=== PATIENT | female | born 1955 | race Caucasian/White ===

== ENCOUNTER 2024-02-19 15:22 | Outpatient (CLI) | payer MEDICARE, BC, SELFPAY ==
--- NOTE | 2024-02-19 15:30 | MR_ITS ---
[address] [address] Phone:?[phone] Fax:?[phone] Referring Physician Information: Felix Meza M.D. [id number] [facility] [address] Phone:?[phone] Fax:?[phone] Patient:Jimmy Alston D.O.B:?1955 Sex:?Female Phone:?[phone] [facility] MRN:?[id number] Exam Date:?02/19/2024 EXAM: MRI of the LEFT KNEE, without contrast CLINICAL INFORMATION: Female, 68 years old, with left knee and calf pain. INDICATION: Evaluate for meniscal tear. PRIOR SURGERY: None reported. PLAIN FILMS: None available. COMPARISONS: No prior MRIs available. TECHNICAL INFORMATION: Using a 1.5T MR scanner and a localizing surface coil: sagittals: PD, T2FS coronals: PD, T2, STIR axials: PD, T2FS SEDATION: None CONTRAST: None FINDINGS: Knee joint: Effusion: Small left knee effusion. Popliteal cyst: None. Loose bodies: None. Subcutaneous and extra-articular soft tissues: Unremarkable. Ligaments: ACL: Intact ACL anteromedial and posterolateral bundles, without sprain or tear. PCL: Intact PCL, without acute or chronic injury. MCL: Moderate periligamentous edema is present along the superficial and deep surfaces of the superficial MCL, without tear (coronal STIR series 9 image 17). LCL: Intact LCL, without injury. Posterolateral corner: No posterolateral corner soft tissue injury. Popliteus, biceps femoris, iliotibial band, popliteofibular ligament and lateral gastrocnemius are intact. Posteromedial corner: No posteromedial corner soft tissue injury. Semimembranosus, pes anserine tendons and posterior oblique ligament are without injury, tendinopathy or bursitis. Extensor mechanism: Patellar tendon: Mild proximal patellar tendinopathy, without tear. Quadriceps tendon: Intact, without tendinopathy. Retinacula: Medial and lateral retinacula are intact. Fat pads: Unremarkable infrapatellar Hoffa's, quadriceps and prefemoral fat pads. Medial compartment: Medial meniscus: Full thickness radial tearing of the posterior horn/root of the medial meniscus measures 7 mm (sagittal T2FS series 7 images 14-16). This is associated with 3 mm of meniscal extrusion. No parameniscal cyst. Abnormal signal and irregularity is also present throughout the posterior meniscocapsular junction. Medial femoral condyle: No chondromalacia or osteochondral abnormality. Medial tibial plateau: No chondromalacia or osteochondral abnormality. Lateral compartment: Lateral meniscus: No articular surface, meniscosynovial junction or root tear. No displacement, extrusion or parameniscal cyst. Lateral femoral condyle: No chondromalacia or osteochondral abnormality. Lateral tibial plateau: No chondromalacia or osteochondral abnormality. Patellofemoral joint: Patella: Broad-based grade II chondromalacia of the lateral facet and median ridge, with minimal marginal osteophytosis. Trochlea: Broad-based grade II chondromalacia of the lateral trochlear facet, with minimal marginal osteophytosis. Proximal tibiofibular joint: Unremarkable, without evidence of ligament sprain injury, joint effusion or adjacent marrow edema. Bones: No stress/occult fractures or other marrow edema/pathology. IMPRESSION: 1. Full-thickness radial tear of the posterior horn/root of the medial meniscus with a superimposed posterior meniscocapsular junction sprain and 3 mm of meniscal extrusion. 2. Grade 1 sprain of the MCL. No cruciate or collateral ligament tear. 3. Minimal osteoarthritis of the patellofemoral compartment. 4. Mild proximal patellar tendinopathy, without tear. 5. Small knee joint effusion. No popliteal (Alvarez's) cyst. 6. No lateral meniscal tear. 7. No osteochondral abnormality of the medial or lateral compartment. BC Electronically signed on 02/20/2024 8:05:00 AM by Regino Enrique M.D.
== END 2024-02-19 15:23 | disposition home or self-care (01) ==
LOC: MRI 15:24
PROVIDERS: Visit Provider Orthopaedic Surgery Sports Medicine
DX: M25.562 Pain in left knee (principal); S83.242A Other tear of medial meniscus, current injury, left knee, initial encounter; S83.412A Sprain of medial collateral ligament of left knee, initial encounter; M25.462 Effusion, left knee
CPT/HCPCS: 73721

== ENCOUNTER 2024-05-15 11:15 | Outpatient (RCR) | payer MEDICARE, BC, SELFPAY ==
--- NOTE | 2024-04-29 15:57 | PT.OPEX ---
PT [place] Outpatient Eval PT [facility] Outpatient Eval Start: 04/24/24 12:51 Freq: Status: Active Protocol: Document 04/24/24 12:51 MAURO (Rec: 04/24/24 17:45 MAURO [id number]) E-signed By Lupe Aguilar PT Physical Therapy Outpatient Evaluation Insurance Information Recert Due Date 07/22/24 Insurance Name Medicare B Medical Diagnosis LEFT KNEE OA LEFT KNEE MEDIAL MENISCAL TEAR Treating Diagnosis LEFT KNEE PAIN Imaging Report Information Medial meniscus: Full thickness radial tearing of the posterior horn/root of the medial meniscus measures 7 mm (sagittal T2FS series 7 images 14-16). This is associated with 3 mm of meniscal extrusion. No parameniscal cyst. Abnormal signal and irregularity is also present throughout the posterior meniscocapsular junction. Patellar tendon: Mild proximal patellar tendinopathy, without tear. MCL: Moderate periligamentous edema is present along the superficial and deep surfaces of the superficial MCL, without tear (coronal STIR series 9 image 17). IMPRESSION: 1. Full-thickness radial tear of the posterior horn/root of the medial meniscus with a superimposed posterior meniscocapsular junction sprain and 3 mm of meniscal extrusion. 2. Grade 1 sprain of the MCL. No cruciate or collateral ligament tear. 3. Minimal osteoarthritis of the patellofemoral compartment . Referring MD CINDY Subjective Preferred Name VALERI TRAMMELL REPORTS A GRADUAL ONSET OF PAIN IN HER KNEE (MEDIAL) THAT EXACERBATED WITH HER RECENT MOVING HOUSEHOLDS. SHE IS AN ACTIVE INDIVIDUAL REGULARLY PLAYING 9 HOLES OF GOLF AND BIKING WITH HER SPOUSE. SHE DETERMINED THAT 9 HOLES WAS JUST ABOUT ENOUGH STRESS BEFORE THE KNEE BEGINS TO SWELL. SHE REPORTS THAT DESCENDING STAIRS AND SQUATTING /STOOPING TO THE FLOOR ARE THE GREATEST CHALLENGES. SHE RECEIVED A CORTISONE INJECTIONS YESTERDAY AN INSTRUCTED TO AVOID ANY EXERCISE UNTIL 04/26. SHE IS HERE TODAY TO LEARN EXERCISES THAT HELP HER KNEE FUNCTION AND DECREASE HER SYMPTOMS. Pain Comments -10/24 Date of Last Physician Visit 04/23/24 Current Work Status Retired Precautions Treatment Precautions/Contraindications CORTISONE INJECTION 04/23/24, BEGIN EXERCISES 04/26/24 Objective Other/Pertinent Objective SLS: MCTSB /13/03 JOINT MOBILITY/PALPATION: MEDIAL JOINT TENDERNESS TX: WARM UP HEEL SLIDES X 10 QS X 10 W/SMALL ROLL HOLD 5 SEC SLR X 10 W/SMALL ROLL SIDELYING LEG RAISE X 15 SUPINE BRIDGE WITH ADD SQUEEZE CALF STRETCH 3 X 30 SEC HAMSTRING STRETCH 3 X 30 SEC QUAD /HIP FLEX STRETCH 3 X 30 Functional Test Performed & Score [id number] Assessment Assessment/Impression PATIENT IS A [address] WHITE TO EVAL AND TX LEFT KNEE OA/MENISCAL TEAR; PATIENT DEMONSTRATES NORMAL ROM WITH TIGHTNESS OF HAMSTRING, HIP FLEX, AND PIRIFORMIS WELL MEDIAL JOINT LINE PAIN GREATEST POSTERIORLY. PREDOMINATELY, HER KNEE ACHES IN THE SECURITY DEVELOPER WAKING HER FROM SLEEP AND WALKING COMMUNITY DISTANCES. SHE DEMONSTRATES INCREASED EDEMA WHICH SHE DESCRIBES FULL AND DEMONSTRATES DECREASED SUPINE AROM KNEE ROM MEASURING 0-0- 114. WE DISCUSSED PROBLEMATIC POSITIONS IN LIGHT OF HER MENISCAL TEAR AND COMPLIMENTING DEFICITS THAT LIKELY INFLUENCE HER KNEE FUNCTION. SHE WOULD BENEFIT FROM PHYSICAL THERAPY TO ADDRESS SYMPTOMS MGMT, MM/ JOINT FLEXIBILITY, STRENGTHENING TO UNLOAD JOINT, AND IMPROVING JOINT ROM. PATIENT VERBALIZED UNDERSTANDING AND AGREEABLE TO POC AND FREQ. Primary Functional Limitations STAIRS RECREATIONAL ACTIVITIES COMMUNITY AMB SQUATTING, STOOPING, WEIGHTED KNEE FLEX Plan of Care Rehabilitation Potential Good Physical Therapy Goals 1. DECREASE R KNEE TO </3/10 WITH DAILY ACTIVITIES AND WITH THE PROGRESSION OF PHYSICAL THERAPY PROGRAM OVER THE NEXT 3-4 WEEKS 2. IMPROVE R KNEE ROM TO WNL OVER THE NEXT 4-6 WEEKS FOR IMPROVED GAIT MECHANICS, RETURN TO TRANSFERS W/O ASSISTANCE AND WITH EASE, AND RETURN TO ASCENDING/DESCENDING STAIRS WITH RECIPROCAL GAIT 3. IMPROVE CORE/LE COMPLEX STRENGTH OVER THE NEXT 6-8 WEEKS FOR RETURN TO TRANSFERS WITH EASE, NORMAL GAIT WITHOUT AD, AND STANDING/WALKING > 15MIN WITHOUT A FLARE UP OF PAIN 4. PATIENT WILL IMPROVE HER MCTSB FROM //8 TO /30 AND SLS EC FROM 12 TO 30 5. PATIENT WILL BE INDEPENDENT WITH HER HEP WITHIN 8-12 WEEKS FOR PROGRESSION TOWARD ABOVE GOALS, ONGOING IMPROVEMENT OF PAIN/SYMPTOMS, ROM, STRENGTH, AND MOBILITY TO RETURN TO DAILY ACTIVITIES AND FAMILY CENTERED ACTIVITIES W/O FLARE UP OF PAIN/SYMPTOMS Coordination/Communication With Referral Source Treatment Plan/Direct Interventions Electrical Stimulation,Gait Training,Heat,Ice/Cold/ Vasopneumatic,Joint Mobilization,Manual Therapy, Neuromuscular Re-ed,Self-Care/ Home Management,Therapeutic Activities,Therapeutic Exercises Frequency/Duration 1-2X/WK Patient Will Be Discharged From Therapy Independently Progressing Evaluation Billing Untimed Code Treatment Minutes 20 PT Eval No Charge No Complexity Low Certification Information Initial Certification Date 04/24/24 Ending Certification Date 07/22/24 Provider Signature Required Yes Provider Signature Shows Agreement With POC & Medical Necessity Physician NPI Number Write NPI# Here Physician Comment/Change : Physician Signature & Date Requested Please Sign/Date Here
== END 2024-06-11 11:58 | disposition home or self-care (01) ==
PROVIDERS: Visit Provider Orthopaedic Surgery Sports Medicine
DX: M17.12 Unilateral primary osteoarthritis, left knee (principal); S83.242A Other tear of medial meniscus, current injury, left knee, initial encounter; Z51.89 Encounter for other specified aftercare
CPT/HCPCS: 97110; 97161